=== PATIENT | male | born 1935 | race Caucasian/White ===

== ENCOUNTER 2021-11-15 16:04 | Observation (INO) ==
[2021-11-15] MEDS ORDERED: 0.9 % Sodium Chloride 500 ML IVC ONE (18:54)
[2021-11-15 19:13] LABS: Basophils % 0.3 %; Eosinophils # 0.1 K/mcL (0.0-0.6); Eosinophils % 0.7 %; Hematocrit 33.5 % (37.5-50.1); Hemoglobin 11.1 g/dL (12.9-16.9); Immature Granulocytes % 0.4 % (0-4); Lymphocytes # 2.4 K/mcL (0.6-4.6); Mean Corpuscular HGB Conc 33.1 g/dL (31.6-35.5); Mean Corpuscular Hemoglobin 32.9 pg (28.0-33.3); Mean Corpuscular Volume 99.4 fL (83.0-100.0); Mean Platelet Volume 10.9 fL (9.4-12.4); Monocytes # 1.8 K/mcL (0.0-1.3); Neutrophils # 9.1 K/mcL (1.6-8.9); Platelet Count 264 K/mcL (140-400); Red Blood Count 3.37 M/mcL (4.19-5.50); Red Cell Distribution Width 13.6 % (11.5-14.5); Segmented Neutrophils % 67.6 %; White Blood Count 13.5 K/mcL (4.3-11.1)
[2021-11-15 19:21] LABS: Albumin 3.4 g/dL (3.5-5.7); Albumin/Globulin Ratio 0.9 (1.1-2.2); Calcium 9.8 mg/dL (8.6-10.3); Globulin 3.7 g/dL (2.4-3.5); Magnesium 1.6 mg/dL (1.6-2.6); Phosphorous 2.3 mg/dL (2.7-4.5); Potassium 4.3 mEq/L (3.5-5.1); Total Protein 7.1 g/dL (6.4-8.9)
[2021-11-15 19:24] LABS: Troponin I 0.1 ng/mL (< 0.04)
[2021-11-15 19:57] LABS: INR 3.7; Prothrombin Time 41.3 Seconds (9.4-12.1)
[2021-11-15 20:00] LABS: Activated Partial Thrombo Time 44.3 Seconds (26.0-36.0)
[2021-11-15] MEDS ORDERED: Vancomycin Oral Soln 125 MG/2.5 ML UDC PO STA (22:21)
[2021-11-15] MEDS ORDERED: Ondansetron 4 MG/2 ML VIAL IVP PRN (23:35)
[2021-11-15] MEDS ORDERED: Naloxone 0.4 MG/ML INJ IVP PRN (23:35)
[2021-11-15] MEDS ORDERED: Acetaminophen 325 MG TABLET PO PRN (23:35)
[2021-11-15] MEDS ORDERED: *HR* Dextrose 50 % in Water (Syg) 50 ML SYRINGE IVP PRN (23:41)
[2021-11-15] MEDS ORDERED: D5% in Water 1,000 ML IVC PRN (23:41)
[2021-11-15] MEDS ORDERED: Dextrose Gel 15 GM/37.5 ML TUBE PO PRN ×2 (23:41)
[2021-11-15] MEDS ORDERED: Perflutren Lipid Microsphere 1.3 ML in 0.9 % Sodium Chloride 8.7 ML IVP PRN (23:57)
[2021-11-16 01:53] LABS: Adenovirus Not Detected (Not Detect); Bordetella Pertussis Not Detected (Not Detect); Chlamydophila pneumoniae Not Detected (Not Detect); Coronavirus 229E Not Detected (Not Detect); Coronavirus HKU1 Not Detected (Not Detect); Coronavirus NL63 Not Detected (Not Detect); Coronavirus OC43 Not Detected (Not Detect); Human Metapneumovirus Not Detected (Not Detect); Human Rhinovirus/Enterovirus Not Detected (Not Detect); Influenza A Subtype 2009 H1 Not Detected (Not Detect); Influenza B Not Detected (Not Detect); Mycoplasma pneumoniae Not Detected (Not Detect); Parainfluenza Virus 1 Not Detected (Not Detect); Parainfluenza Virus 2 Not Detected (Not Detect); Parainfluenza Virus 3 Not Detected (Not Detect); Parainfluenza Virus 4 Not Detected (Not Detect); Respiratory Syncytial Virus Not Detected (Not Detect); SARS-CoV-2 Not Detected (Not Detect)
[2021-11-16] MEDS: Insulin LISPRO 300 UNITS/3 ML VIAL SUBQ SCH ×4 (02:16→17:35)
[2021-11-16 02:39] LABS: Basophils % 0.3 %; Eosinophils # 0.2 K/mcL (0.0-0.6); Eosinophils % 1.2 %; Hematocrit 34.4 % (37.5-50.1); Hemoglobin 10.7 g/dL (12.9-16.9); Immature Granulocytes % 0.5 % (0-4); Lymphocytes # 2.5 K/mcL (0.6-4.6); Lymphocytes % 19.8 %; Mean Corpuscular HGB Conc 31.1 g/dL (31.6-35.5); Mean Corpuscular Hemoglobin 31.6 pg (28.0-33.3); Mean Corpuscular Volume 101.5 fL (83.0-100.0); Mean Platelet Volume 10.6 fL (9.4-12.4); Monocytes # 1.6 K/mcL (0.0-1.3); Monocytes % 12.5 %; Neutrophils # 8.4 K/mcL (1.6-8.9); Platelet Count 239 K/mcL (140-400); Red Blood Count 3.39 M/mcL (4.19-5.50); Red Cell Distribution Width 13.5 % (11.5-14.5); Segmented Neutrophils % 65.7 %; White Blood Count 12.8 K/mcL (4.3-11.1)
[2021-11-16 02:43] LABS: Activated Partial Thrombo Time 39.5 Seconds (26.0-36.0)
[2021-11-16 02:58] LABS: Calcium 9.4 mg/dL (8.6-10.3); Magnesium 1.7 mg/dL (1.6-2.6); Phosphorous 3.1 mg/dL (2.7-4.5)
[2021-11-16 03:03] LABS: Estimated Average Glucose 177 mg/dl; Hemoglobin A1C 7.8 %
[2021-11-16] MEDS ORDERED: Magnesium Sulfate 1 GM/102 ML PIGGYBACK IVPB ONE (03:15)
[2021-11-16] MEDS ORDERED: Calcium Gluconate 1gm/50mL 1 GM/50 ML BAG IVPB ONE (03:16)
[2021-11-16 04:14] LABS: INR 3.8; Prothrombin Time 42.2 Seconds (9.4-12.1)
[2021-11-16] MEDS: Vancomycin Oral Soln 125 MG/2.5 ML UDC PO SCH ×4 (08:49→20:41)
[2021-11-16] MEDS: Metoprolol 100 MG TABLET PO SCH ×2 (08:53→23:16)
[2021-11-16] MEDS: Magnesium Oxide 400 MG TABLET PO SCH ×2 (08:53→20:41)
[2021-11-16] MEDS ORDERED: *HR* Warfarin 1 MG TABLET PO SCH (18:00)
[2021-11-16] MEDS ORDERED: Warfarin perPT PO PRN (18:00)
[2021-11-16] MEDS ORDERED: Albumin 25% 25gram/100mL 25 GM/100 ML IV.SOLN IVPB ONE (20:24)
[2021-11-16] MEDS: Furosemide 40 MG/4 ML VIAL IVP SCH (23:17)
[2021-11-17 00:58] LABS: Basophils # 0.1 K/mcL (0.0-0.2); Basophils % 0.4 %; Eosinophils # 0.3 K/mcL (0.0-0.6); Eosinophils % 2.2 %; Hematocrit 29.6 % (37.5-50.1); Hemoglobin 9.4 g/dL (12.9-16.9); Immature Granulocytes % 0.5 % (0-4); Lymphocytes % 16.4 %; Mean Corpuscular HGB Conc 31.8 g/dL (31.6-35.5); Mean Corpuscular Hemoglobin 31.5 pg (28.0-33.3); Mean Corpuscular Volume 99.3 fL (83.0-100.0); Mean Platelet Volume 10.7 fL (9.4-12.4); Monocytes # 1.8 K/mcL (0.0-1.3); Neutrophils # 8.1 K/mcL (1.6-8.9); Platelet Count 224 K/mcL (140-400); Red Blood Count 2.98 M/mcL (4.19-5.50); Red Cell Distribution Width 13.3 % (11.5-14.5); Segmented Neutrophils % 65.5 %; White Blood Count 12.3 K/mcL (4.3-11.1)
[2021-11-17 01:06] LABS: INR 3.3
[2021-11-17 01:15] LABS: Albumin 3.2 g/dL (3.5-5.7); Bilirubin,Total 0.7 mg/dL (0.3-1.0); Globulin 3.1 g/dL (2.4-3.5); Potassium 4.3 mEq/L (3.5-5.1); Total Protein 6.3 g/dL (6.4-8.9)
[2021-11-17 07:20] VITALS: O2SAT 97
[2021-11-17] MEDS: Vancomycin Oral Soln 125 MG/2.5 ML UDC PO SCH (08:49)
[2021-11-17] MEDS: Metoprolol 100 MG TABLET PO SCH (08:49)
[2021-11-17] MEDS: Magnesium Oxide 400 MG TABLET PO SCH (08:49)
[2021-11-17] MEDS: Insulin LISPRO 300 UNITS/3 ML VIAL SUBQ SCH (08:50)
[2021-11-17] MEDS: Furosemide 40 MG/4 ML VIAL IVP SCH (10:02)
[2021-11-17 10:42] VITALS: BP 110/69; PULSE 69; TEMP 98.1
[2021-11-17] MEDS ORDERED: *HR* Warfarin 0.5 MG TABLET PO ONE (18:00)
== END 2021-11-17 13:10 | disposition home or self-care (01) ==
LOC: EMEROOARM 16:04 → 3BNU 16:04
PROVIDERS: ADMIT Internal Medicine; ATTEND Internal Medicine

== ENCOUNTER 2022-02-07 08:43 | Inpatient (IN) ==
[2022-02-07] MEDS ORDERED: Isovue-370 500 ML BOTTLE IVP ONE (09:01)
[2022-02-07 09:25] LABS: Basophils % 0.4 %; Eosinophils # 0.1 K/mcL (0.0-0.6); Eosinophils % 0.9 %; Hematocrit 40.5 % (37.5-50.1); Hemoglobin 13.3 g/dL (12.9-16.9); Immature Granulocytes % 0.3 % (0-4); Lymphocytes # 2.5 K/mcL (0.6-4.6); Lymphocytes % 23.4 %; Mean Corpuscular HGB Conc 32.8 g/dL (31.6-35.5); Mean Corpuscular Hemoglobin 31.4 pg (28.0-33.3); Mean Corpuscular Volume 95.7 fL (83.0-100.0); Mean Platelet Volume 10.8 fL (9.4-12.4); Monocytes # 0.7 K/mcL (0.0-1.3); Monocytes % 6.8 %; Neutrophils # 7.2 K/mcL (1.6-8.9); Platelet Count 202 K/mcL (140-400); Red Blood Count 4.23 M/mcL (4.19-5.50); Segmented Neutrophils % 68.2 %; White Blood Count 10.5 K/mcL (4.3-11.1)
[2022-02-07 09:32] LABS: VBG HCO3 24 mEq/L (21-27); VBG PCO2 37 mmHg (41-51); VBG PH 7.42 pH Units (7.32-7.42); VBG PO2 68 mmHg (25-50)
[2022-02-07 09:43] LABS: Prothrombin Time 22.7 Seconds (9.4-12.1)
[2022-02-07 09:46] LABS: Activated Partial Thrombo Time 36.1 Seconds (26.0-36.0)
[2022-02-07 10:18] LABS: Alanine Aminotransferase 19 Units/L (7-52); Albumin 3.8 g/dL (3.5-5.7); Albumin/Globulin Ratio 0.9 (1.1-2.2); Alkaline Phosphatase 123 Units/L (34-104); Aspartate Amino Transferase 19 Units/L (13-39); BUN/Creatinine Ratio 19 (6-26); Bilirubin,Direct 0.2 mg/dL (0.0-0.2); Bilirubin,Indirect 0.7 mg/dL (0.0-1.0); Bilirubin,Total 0.9 mg/dL (0.3-1.0); Blood Urea Nitrogen 45 mg/dL (8-23); Calcium 11.1 mg/dL (8.6-10.3); Carbon Dioxide 23 mEq/L (23-29); Chloride 103 mEq/L (98-107); Creatine Kinase 68 Units/L (30-223); Ethanol < 10 mg/dL (Less than 10); Globulin 4.2 g/dL (2.4-3.5); Glucose 271 mg/dL (70-105); Osmolality,Calculated 307 (280-300); Potassium 4.8 mEq/L (3.5-5.1); Sodium 138 mEq/L (136-145); Thyroid Stimulating Hormone 1.472 mcIU/mL (0.340-5.600); Troponin I 0.06 ng/mL (< 0.04); eGFR For African Americans 31 (> 60); eGFR For Non-African Americans 25 (> 60)
[2022-02-07 10:20] LABS: Influenza A PCR Negative (Negative); Influenza B PCR Negative (Negative); Resp. Syncytial Virus PCR Negative (Negative)
[2022-02-07 10:36] LABS: SARS-CoV-2 by PCR (In House) Negative (Negative)
[2022-02-07 11:16] LABS: Bilirubin,Urine Negative (Negative); Blood,Urine Large (Negative); Clarity,Urine Clear (Clear); Color,Urine Yellow (Yellow); Glucose,Urine (UA) Normal (Normal); Hyaline Casts,Urine Moderate per lpf (None Seen); Ketones,Urine Negative (Negative); Leukocyte Esterase,Urine Negative (Negative); Mucus,Urine Few per lpf (None-Few); Nitrite,Urine Negative (Negative); Protein,Urine 30 mg/dL (Neg-Trace); RBC,Urine TNTC per hpf (0-3); Specific Gravity,Urine 1.019 (1.010-1.025); Squamous Epithelial Cell,Urine Few per hpf (None-Few); Urobilinogen,Urine Normal (Normal); WBC,Urine 15-30 per hpf (0-3)
[2022-02-07] MEDS ORDERED: cefTRIAXone 1,000 MG in 0.9 % Sodium Chloride Mini Bag 100 ML IVPB ONE (11:52)
[2022-02-07] MEDS ORDERED: Doxycycline 100 MG in 0.9 % Sodium Chloride Mini Bag 100 ML IVPB ONE (11:52)
[2022-02-07 11:56] LABS: Amphetamine Screen,Urine Negative ng/mL (Cutoff=1000); Barbiturate Screen,Urine Negative ng/mL (Cutoff=200); Benzodiazepines Screen,Urine Negative ng/mL (Cutoff=200); Cannabinoid Screen,Urine Negative ng/mL (Cutoff = 50); Cocaine Screen,Urine Negative ng/mL (Cutoff= 300); Opiate Screen,Urine Negative ng/mL (Cutoff=300); Phencyclidine Screen,Urine Negative ng/mL (Cutoff=25)
[2022-02-07] MEDS ORDERED: Naloxone 0.4 MG/ML INJ IVP PRN (12:23)
[2022-02-07] MEDS: Vancomycin Oral Soln 125 MG/2.5 ML UDC PO SCH ×2 (12:26→19:58)
[2022-02-07] MEDS ORDERED: Dextrose 4 GM Chewable Tablets PO PRN ×2 (13:09)
[2022-02-07] MEDS ORDERED: *HR* Dextrose 50 % in Water (Syg) 50 ML SYRINGE IVP PRN (13:09)
[2022-02-07] MEDS ORDERED: D5% in Water 1,000 ML IVC PRN (13:09)
[2022-02-07] MEDS ORDERED: Azithromycin 250 MG TABLET PO SCH (13:15)
[2022-02-07] MEDS: Spironolactone 25 MG TABLET PO SCH ×2 (14:48→19:52)
[2022-02-07] MEDS: Metoprolol XL (24 HR) Succ 50 MG TAB.ER.24H PO SCH (14:48)
[2022-02-07] MEDS: Insulin LISPRO 300 UNITS/3 ML VIAL SUBQ SCH ×3 (14:50→20:59)
[2022-02-07] MEDS: Furosemide 20 MG TABLET PO SCH (16:22)
[2022-02-07] MEDS ORDERED: *HR* Warfarin 2 MG TABLET PO ONE (18:00)
[2022-02-07] MEDS ORDERED: Warfarin perPT PO PRN (18:00)
[2022-02-07] MEDS: Magnesium Oxide 400 MG TABLET PO SCH (19:58)
[2022-02-07] MEDS ORDERED: Insulin NPH/REG 70/30 100 UNIT/ML (x5UNIT) SUBQ SCH (21:00)
[2022-02-08 01:58] LABS: Basophils % 0.3 %; Eosinophils # 0.2 K/mcL (0.0-0.6); Eosinophils % 1.4 %; Hematocrit 38.3 % (37.5-50.1); Hemoglobin 12.5 g/dL (12.9-16.9); Immature Granulocytes % 0.3 % (0-4); Lymphocytes # 3.4 K/mcL (0.6-4.6); Lymphocytes % 28.5 %; Mean Corpuscular HGB Conc 32.6 g/dL (31.6-35.5); Mean Platelet Volume 10.7 fL (9.4-12.4); Monocytes # 1.2 K/mcL (0.0-1.3); Platelet Count 216 K/mcL (140-400); Red Blood Count 4.03 M/mcL (4.19-5.50); Red Cell Distribution Width 13.8 % (11.5-14.5); Segmented Neutrophils % 59.5 %; White Blood Count 11.8 K/mcL (4.3-11.1)
[2022-02-08 02:07] LABS: INR 2.2; Prothrombin Time 24.3 Seconds (9.4-12.1)
[2022-02-08 02:13] LABS: Calcium 10.8 mg/dL (8.6-10.3); Phosphorous 2.9 mg/dL (2.7-4.5); Potassium 3.7 mEq/L (3.5-5.1)
[2022-02-08] MEDS: Insulin LISPRO 300 UNITS/3 ML VIAL SUBQ SCH ×4 (07:19→21:02)
[2022-02-08] MEDS: Furosemide 20 MG TABLET PO SCH ×2 (08:29→16:27)
[2022-02-08] MEDS: Magnesium Oxide 400 MG TABLET PO SCH ×2 (08:29→21:02)
[2022-02-08] MEDS: Spironolactone 25 MG TABLET PO SCH ×2 (08:30→21:02)
[2022-02-08] MEDS: allopurinoL 100 MG TABLET PO SCH (08:30)
[2022-02-08] MEDS: Metoprolol XL (24 HR) Succ 50 MG TAB.ER.24H PO SCH (08:30)
[2022-02-08] MEDS ORDERED: cefTRIAXone 1,000 MG in 0.9 % Sodium Chloride 10 ML IVPB SCH (09:00)
[2022-02-08] MEDS ORDERED: Insulin NPH/REG 70/30 100 UNIT/ML (x5UNIT) SUBQ SCH (09:00)
[2022-02-08] MEDS ORDERED: *HR* Warfarin 2 MG TABLET PO ONE (18:00)
[2022-02-08] MEDS: Insulin NPH/REG 70/30 100 UNIT/ML (x5UNIT) SUBQ SCH (21:03)
[2022-02-09 03:04] LABS: Basophils # 0.1 K/mcL (0.0-0.2); Basophils % 0.6 %; Eosinophils # 0.3 K/mcL (0.0-0.6); Eosinophils % 2.7 %; Hematocrit 37.9 % (37.5-50.1); Hemoglobin 12.3 g/dL (12.9-16.9); Immature Granulocytes % 0.2 % (0-4); Lymphocytes # 2.6 K/mcL (0.6-4.6); Lymphocytes % 23.9 %; Mean Corpuscular HGB Conc 32.5 g/dL (31.6-35.5); Mean Corpuscular Hemoglobin 31.8 pg (28.0-33.3); Mean Corpuscular Volume 97.9 fL (83.0-100.0); Mean Platelet Volume 11.3 fL (9.4-12.4); Monocytes % 9.4 %; Neutrophils # 6.8 K/mcL (1.6-8.9); Platelet Count 181 K/mcL (140-400); Red Blood Count 3.87 M/mcL (4.19-5.50); Red Cell Distribution Width 13.7 % (11.5-14.5); Segmented Neutrophils % 63.2 %; White Blood Count 10.8 K/mcL (4.3-11.1)
[2022-02-09 03:07] LABS: INR 2.6
[2022-02-09 04:31] LABS: Calcium 9.9 mg/dL (8.6-10.3); Potassium 4.7 mEq/L (3.5-5.1)
[2022-02-09 08:17] VITALS: BP 123/73; PULSE 103; TEMP 97.9; O2SAT 95
[2022-02-09] MEDS: Metoprolol XL (24 HR) Succ 50 MG TAB.ER.24H PO SCH (08:31)
[2022-02-09] MEDS: Magnesium Oxide 400 MG TABLET PO SCH (08:31)
[2022-02-09] MEDS: Furosemide 20 MG TABLET PO SCH (08:31)
[2022-02-09] MEDS: allopurinoL 100 MG TABLET PO SCH (08:31)
[2022-02-09] MEDS: Spironolactone 25 MG TABLET PO SCH (08:31)
[2022-02-09] MEDS: Insulin NPH/REG 70/30 100 UNIT/ML (x5UNIT) SUBQ SCH (08:32)
[2022-02-09] MEDS: Insulin LISPRO 300 UNITS/3 ML VIAL SUBQ SCH (08:32)
[2022-02-09] MEDS ORDERED: *HR* Warfarin 1 MG TABLET PO ONE (18:00)
== END 2022-02-09 12:07 | disposition home health service (06) | DRG 71 ==
LOC: EMEROOARM 08:43 → 2ANU 08:43 → SUATTDRO 13:44 → 2ANU 14:23
PROVIDERS: ADMIT Family Medicine; ATTEND Family Medicine